=== PATIENT | male | born 1980 | race American Indian/Alaskan Native ===

== ENCOUNTER 2019-01-06 23:37 | Emergency (ER) | payer SELFPAY ==
[2019-01-06] MEDS ORDERED: CATAPRES PO ONE (23:56)
--- NOTE | 2019-01-07 00:49 | XRay Report ---
PROCEDURE: XR CHEST ROUTINE 2V TECHNIQUE: PA and lateral chest radiographs were obtained. HISTORY: cough COMPARISONS: None. FINDINGS: Heart: Normal. Mediastinum/Vessels: Normal. Lungs/Pleural space: Normal. Bony thorax: No acute osseous abnormality. There is a small metal fragment superimposed over the left axilla. IMPRESSION: No acute cardiopulmonary process.. This document is electronically signed by Mike Guardado MD., January 07 2019 12:47:18 AM ET
[2019-01-07] MEDS ORDERED: TRIMOX PO ONE (02:12)
[2019-01-07] MEDS ORDERED: SOLU-Medrol IM ONE (02:12)
[2019-01-07] MEDS ORDERED: DUONEB *Not for PRN Use IH ONE (02:12)
[2019-01-07 02:43] VITALS: BP 141/98
--- NOTE | 2019-01-07 02:59 | Emergency Department Report ---
- General Chief Complaint: Upper Respiratory Infection Stated Complaint: COUGH Time Seen by Provider: 01/07/19 02:00 Source: patient Mode of arrival: Ambulatory Limitations: No Limitations - History of Present Illness Initial Comments: Patient is a 38-year-old [place] male with a history of hypertension and tobacco smoking habit who presents to the ED with a complaint of acute onset persistent nasal and sinus congestion, frontal sinus pressure and headache, dry cough with shortness of breath and wheezing for the last 2 days. Patient states that other family members have had similar symptoms and that his symptoms are similar to those other family members. Patient denies chest pain, shortness of breath, fever, chills, nausea, vomiting, dizziness, abdominal pain, sore throat, hearing loss or change in vision and neck pain. MD Complaint: cough, rhinorrhea, nasal congestion, sinus pain -: Sudden, days(s) (2) Severity: severe Severity scale (0 -10): 7 Quality: sharp, aching Consistency: constant Improves With: nothing Worsens With: nothing Context: sick contacts Associated Symptoms: denies other symptoms, myalgias, headache, rhinorrhea, nasal congestion, cough. denies: fever, chills, diaphoresis, sore throat, chest pain, shortness of breath, abdominal pain, nausea, vomiting, rash, weight loss, hoarseness, ear pain Treatments Prior to Arrival: none - Related Data Previous Rx's Medication Instructions Recorded Last Taken Type Lisinopril [Zestril TAB] 20 mg PO QDAY #30 tablet 11/12/14 Unknown Rx Amoxicillin [Trimox CAP] 500 mg PO Q8H #30 capsule 06/24/15 Unknown Rx HYDROcodone/APAP 10-325 [[place] 1 each PO Q6HR PRN #12 tablet 06/24/15 Unknown Rx 10/325] Lisinopril/Hydrochlorothiazide 1 tab PO QDAY #30 tab 06/24/15 Unknown Rx [Zestoretic 20-25 mg] Benzonatate [Tessalon Perles] 100 mg PO Q8HR PRN #30 capsule 01/07/19 Unknown Rx Ibuprofen [Motrin] 800 mg PO Q8HR PRN #20 tablet 01/07/19 Unknown Rx Lisinopril/Hydrochlorothiazide 1 tab PO QDAY 3 Days #30 tab 01/07/19 Unknown Rx [Zestoretic 20-25 mg] Penicillin V Potassium 500 mg PO Q6H #40 tablet 01/07/19 Unknown Rx Prednisone [predniSONE 10 mg 10 mg PO .TAPER #21 tab.ds.pk 01/07/19 Unknown Rx (6-Day Pack, 21 Tabs)] Allergies Allergy/AdvReac Type Severity Reaction Status Date / Time coconut oil Allergy Hives Verified 06/24/15 07:52 ED Review of Systems ROS: Stated complaint: COUGH Other details as noted in HPI Comment: All other systems reviewed and negative Constitutional: no symptoms reported, see HPI. denies: diaphoresis, fever, malaise Eyes: as per HPI. denies: eye pain, eye discharge, vision change ENT: as per HPI, congestion. denies: ear pain, throat pain, dental pain, hearing loss, epistaxis Respiratory: no symptoms reported, see HPI, cough, wheezing. denies: shortness of breath, SOB with exertion Cardiovascular: as per HPI. denies: chest pain, palpitations, dyspnea on exertion, orthopnea Endocrine: no symptoms reported, see HPI. denies: excessive sweating, increased hunger, increased thirst Gastrointestinal: as per HPI. denies: abdominal pain, nausea, vomiting, diarrhea, constipation, hematemesis, hematochezia Genitourinary: as per HPI. denies: urgency, dysuria, frequency, hematuria, discharge, testicular pain, testicular mass Musculoskeletal: as per HPI. denies: back pain, joint swelling, arthralgia Skin: as per HPI. denies: rash, lesions, change in color, change in hair/nails Neurological: as per HPI, headache. denies: weakness, numbness, abnormal gait, vertigo Psychiatric: as per HPI Hematological/Lymphatic: as per HPI ED Past Medical Hx - Past Medical History Previous Medical History?: Yes Hx Hypertension: Yes - Surgical History Past Surgical History?: Yes - Social History Smoking Status: Current Every Day Smoker Substance Use Type: None - Medications Home Medications: Home Medications Medication Instructions Recorded Confirmed Last Taken Type Lisinopril [Zestril TAB] 20 mg PO QDAY #30 tablet 11/12/14 Unknown Rx Amoxicillin [Trimox CAP] 500 mg PO Q8H #30 capsule 06/24/15 Unknown Rx HYDROcodone/APAP 10-325 [[place] 1 each PO Q6HR PRN #12 tablet 11/20/15 Unknown Rx 10/325] Lisinopril/Hydrochlorothiazide 1 tab PO QDAY #30 tab 06/24/15 Unknown Rx [Zestoretic 20-25 mg] Benzonatate [Tessalon Perles] 100 mg PO Q8HR PRN #30 capsule 01/07/19 Unknown Rx Ibuprofen [Motrin] 800 mg PO Q8HR PRN #20 tablet 01/07/19 Unknown Rx Lisinopril/Hydrochlorothiazide 1 tab PO QDAY 3 Days #30 tab 01/07/19 Unknown Rx [Zestoretic 20-25 mg] Penicillin V Potassium 500 mg PO Q6H #40 tablet 01/07/19 Unknown Rx Prednisone [predniSONE 10 mg 10 mg PO .TAPER #21 tab.ds.pk 01/07/19 Unknown Rx (6-Day Pack, 21 Tabs)] ED Physical Exam - General Limitations: No Limitations General appearance: alert, in no apparent distress - Head Head exam: Present: atraumatic, normocephalic, normal inspection - Eye Eye exam: Present: normal appearance, PERRL, EOMI. Absent: scleral icterus, conjunctival injection Pupils: Present: normal accommodation - ENT ENT exam: Present: normal exam, normal orophraynx, mucous membranes moist, TM's normal bilaterally, normal external ear exam, other (Grossly congested nasal passages; palpable frontal and maxillary sinus tenderness) - Neck Neck exam: Present: normal inspection, full ROM. Absent: tenderness, meningismus, lymphadenopathy, thyromegaly - Respiratory Respiratory exam: Present: wheezes. Absent: respiratory distress, rhonchi, stridor, chest wall tenderness, accessory muscle use, decreased breath sounds, prolonged expiratory - Cardiovascular Cardiovascular Exam: Present: regular rate, normal heart sounds. Absent: normal rhythm, bradycardia, tachycardia, systolic murmur, diastolic murmur - GI/Abdominal GI/Abdominal exam: Present: soft, normal bowel sounds. Absent: tenderness, guarding, hyperactive bowel sounds, hypoactive bowel sounds, organomegaly - Rectal Rectal exam: Present: deferred - Extremities Exam Extremities exam: Present: normal inspection, full ROM, normal capillary refill - Back Exam Back exam: Present: normal inspection, full ROM. Absent: tenderness, CVA tenderness (R), CVA tenderness (L), muscle spasm, paraspinal tenderness, vertebral tenderness - Neurological Exam Neurological exam: Present: alert, oriented X3, CN II-XII intact, normal gait, reflexes normal - Psychiatric Psychiatric exam: Present: normal affect, anxious - Skin Skin exam: Present: warm, dry, intact, normal color. Absent: cyanosis, diaphoretic, erythema, vesicles ED Course Vital Signs 01/06/19 01/07/19 01/07/19 23:48 00:02 02:43 Temperature 98.7 F Pulse Rate 88 88 80 Respiratory 17 Rate Blood Pressure 196/132 196/132 Blood Pressure 141/98 [Left] O2 Sat by Pulse 97 Oximetry - Reevaluation(s) Reevaluation #1: 01/07/19 03:18 Patient is alert and oriented 3 and is not in distress. Patient was initially hypertensive but on reevaluation, the blood pressure improved significantly. Patient also was treated and Solu-Medrol in the ED. On reevaluation, the patient felt better and was essentially normal medications. Patient's blood pressure medications and also refilled. Patient was advised to follow up with his primary care physician in 7-10 days for reevaluation or return to the ED immediately if symptoms get worse. Patient was advised to quit tobacco smoking. ED Medical Decision Making - Medical Decision Making Patient is alert and oriented 3 and is not in distress. Patient was initially hypertensive but on reevaluation, the blood pressure improved significantly. Patient also was treated and Solu-Medrol in the ED. On reevaluation, the patient felt better and was essentially normal medications. Patient's blood pressure medications and also refilled. Patient was advised to follow up with his primary care physician in 7-10 days for reevaluation or return to the ED immediately if symptoms get worse. Patient was advised to quit tobacco smoking. - Differential Diagnosis acute upper resp. infection; sinusitis; acute bronchitis, hypertension Critical care attestation.: If time is entered above; I have spent that time in minutes in the direct care of this critically ill patient, excluding procedure time. ED Disposition Clinical Impression: Acute upper respiratory infection, Uncontrolled stage 2 hypertension Acute frontal sinusitis Qualifiers: Recurrence: non-recurrent Qualified Code(s): J01.10 - Acute frontal sinusitis, unspecified Acute bronchitis Qualifiers: Bronchitis organism: unspecified organism Qualified Code(s): J20.9 - Acute bronchitis, unspecified Disposition: - TO HOME OR SELFCARE Is pt being admited?: No Does the pt Need Aspirin: No Condition: Stable Instructions: Acute Bronchitis (ED), Hypertension (ED), Upper Respiratory Infection (ED) Additional Instructions: Take medications with food, drink plenty of fluids and follow up with your primary care physician as advised. Return to the ED immediately if symptoms get worse. Prescriptions: Ibuprofen [Motrin] 800 mg PO Q8HR PRN #20 tablet PRN Reason: Pain , Severe (7-10) Penicillin V Potassium 500 mg PO Q6H #40 tablet Prednisone [predniSONE 10 mg (6-Day Pack, 21 Tabs)] 10 mg PO .TAPER #21 tab.ds.pk Benzonatate [Tessalon Perles] 100 mg PO Q8HR PRN #30 capsule PRN Reason: Cough Lisinopril/Hydrochlorothiazide [Zestoretic 20-25 mg] 1 tab PO QDAY 3 Days #30 tab Referrals: GASPER SORENSENMINDORO MD SCAR [Primary Care Provider] - 3-5 Days Time of Disposition: 03:15 Print Language: SERBIAN
== END 2019-01-07 03:25 | disposition home or self-care (01) ==
LOC: ED 23:37
DX: J01.10 Acute frontal sinusitis, unspecified (principal); J20.9 Acute bronchitis, unspecified; J06.9 Acute upper respiratory infection, unspecified; I10 Essential (primary) hypertension; F17.200 Nicotine dependence, unspecified, uncomplicated
CPT/HCPCS: 71046; 96372; 99283; J2930